=== PATIENT | male | born 1995 | race African-American/Black ===

== ENCOUNTER 2016-08-24 14:16 | Emergency (ER) | payer OTHER, MEDICAID ==
[~2016-08-24] VITALS: Ht 175.3 cm; Wt 86.0 kg
[2016-08-24 14:29] VITALS: BP 122/69; PULSE 66; RESP 16; RESP 18; TEMP 98; O2SAT 99
[2016-08-24] MEDS ORDERED: ACETAMINOPHEN/HYDROcodone 325 MG/5 MG TAB PO ONE (15:30)
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
[2016-08-24] MEDS ORDERED: DICL75TA PO (16:57)
[2016-08-24] MEDS ORDERED: ROBA750T PO (16:57)
== END 2016-08-24 18:03 | disposition home or self-care (01) ==
LOC: NEDAMB 14:16
DX: S13.4XXA Sprain of ligaments of cervical spine, initial encounter (principal); T14.8 Other injury of unspecified body region; V43.52XA Car driver injured in collision with other type car in traffic accident, initial encounter; Y93.9 Activity, unspecified; Y92.9 Unspecified place or not applicable; Y99.9 Unspecified external cause status
CPT/HCPCS: 70450; 72125; 73030; 73552; 73564

== ENCOUNTER 2016-08-26 14:09 | Emergency (ER) | payer OTHER ==
[~2016-08-26] VITALS: Ht 175.3 cm; Wt 90.0 kg
[~2016-08-26 14:09] MED LIST: DICL75TA PO; ROBA750T PO
[2016-08-26 14:11] VITALS: BP 147/87; PULSE 62; RESP 16; TEMP 97.8; O2SAT 100
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
[2016-08-26] MEDS ORDERED: ORPHENADRINE INJ 60 MG/2 ML AMP IM ONE (15:30)
== END 2016-08-26 16:24 | disposition home or self-care (01) ==
LOC: NEPB 14:09
DX: S13.4XXD Sprain of ligaments of cervical spine, subsequent encounter (principal); V89.2XXD Person injured in unspecified motor-vehicle accident, traffic, subsequent encounter
CPT/HCPCS: 96372; 99283; J2360

== ENCOUNTER 2016-09-14 17:01 | Emergency (ER) | payer MEDICAID, OTHER ==
[~2016-09-14] VITALS: Ht 175.3 cm; Wt 86.0 kg
[2016-09-14 17:05] VITALS: BP 125/88; PULSE 77; RESP 16; TEMP 98.3; O2SAT 100
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
[2016-09-14] MEDS ORDERED: IBUP800T23 PO (17:39)
[2016-09-14] MEDS ORDERED: CEPH-459 PO (17:39)
[2016-09-14] MEDS ORDERED: BACT800T5 PO (17:39)
[2016-09-14] MEDS ORDERED: LIDOCAINE 1%/EPINEPHrine 1:100,000 SOLN 20 ML VIAL INFIL ONE (17:45)
== END 2016-09-14 18:05 | disposition home or self-care (01) ==
LOC: PHEFT 17:01
DX: L02.411 Cutaneous abscess of right axilla (principal); B96.4 Proteus (mirabilis) (morganii) as the cause of diseases classified elsewhere; Z87.09 Personal history of other diseases of the respiratory system
CPT/HCPCS: 10061; 87070; 87077; 87186; 87205

== ENCOUNTER 2016-09-16 15:00 | Emergency (ER) | payer MEDICAID ==
[~2016-09-16] VITALS: Ht 175.3 cm; Wt 87.4 kg
[~2016-09-16 15:00] MED LIST changes: +BACT800T5 PO; +CEPH-459 PO; -DICL75TA PO; +IBUP800T23 PO; -ROBA750T PO
[2016-09-16 15:04] VITALS: BP 118/68; PULSE 82; RESP 16; TEMP 98.9; O2SAT 98
--- NOTE | 2016-09-16 15:15 | PD ---
HPI . f/u abscess Chief Complaint: Wound/Suture/Staple Re-Check Time Seen by Provider: 15:15 Travel History International Travel<30 days: No Contact w/Intl Traveler<30days: No Traveled to known affect area: No History of Present Illness HPI 21-year-old male who was seen on September 14 with a right axillary abscess here for wound recheck. There was packing placed and he is here to have it reassessed. Patient still complaining of pain in the right axilla. He is taking medications as prescribed. There is very minimal drainage from this. There is no erythema and the swelling seems to have diminished. He denies any fever or chills. He is concerned about returning to work. PFSH Past Medical History Medical History: Denies Significant Hx Diminished Hearing: No Respiratory: Yes (Asthma) Immunizations Current: Yes Tetanus Vaccination: < 5 Years Influenza Vaccination: No Past Surgical History Surgical History: No Previous Surgery Social History Alcohol Use: Yes (Occ.) Tobacco Use: No Substance Use: No Allergies-Medications (Allergen,Severity, Reaction): Coded Allergies: No Known Allergies (Unverified , 09/16/16) Reported Meds & Prescriptions Reported Meds & Active Scripts Active Ibuprofen 800 Mg Tab 800 Mg PO Q8H PRN Keflex (Cephalexin) 250 Mg Cap 250 Mg PO Q6H 10 Days Bactrim DS (Sulfamethoxazole-Trimethoprim) 800-160 Mg Tab 1 Tab PO BID Review of Systems General / Constitutional: No: Fever Eyes: No: Visual changes HENT: No: Headaches Cardiovascular: No: Chest Pain or Discomfort Respiratory: No: Shortness of Breath Gastrointestinal: No: Abdominal Pain Genitourinary: No: Dysuria Musculoskeletal: Positive: Pain (right axilla ) Skin: No Rash Neurologic: No: Weakness Psychiatric: No: Depression Endocrine: No: Polydipsia Hematologic/Lymphatic: No: Easy Bruising Physical Exam Narrative GENERAL: AAO x 3, no acute distress, Well-nourished, well-developed patient. SKIN: Warm and dry. No visible rashes or bruising. Right axilla with abscess with packing present. Very minimal drainage. Packing removed and there is hardly any purulent matter.Clean blood present. There is already healing from within. No further packing required. HEAD: Normocephalic and atraumatic. EYES: No scleral icterus. No injection or drainage. ENT: No nasal drainage noted. Mucous membranes pink. Airway patent. NECK: Supple, trachea midline. No JVD. CARDIOVASCULAR: Regular rate and rhythm RESPIRATORY: Breath sounds equal bilaterally. GASTROINTESTINAL: Abdomen soft, non-tender, nondistended. EXTREMITIES: No cyanosis or edema. BACK: Nontender without obvious deformity. No CVA tenderness. PSYCH: AAO x 3, normal affect. Data Data Last Documented VS Vital Signs Date Time Temp Pulse Resp B/P Pulse Ox O2 Delivery O2 Flow Rate FiO2 09/16/16 15:04 98.9 82 16 118/68 98 MDM Medical Decision Making Medical Screen Exam Complete: Yes Emergency Medical Condition: Yes Medical Record Reviewed: Yes Differential Diagnosis Right axilla abscess, cellulitis, less likely folliculitis Narrative Course 21-year-old male who was seen on September 14 with a right axillary abscess here for wound recheck. There was packing placed and he is here to have it reassessed. Patient still complaining of pain in the right axilla. He is taking medications as prescribed. There is very minimal drainage from this. There is no erythema and the swelling seems to have diminished. He denies any fever or chills. He is concerned about returning to work. Patient seen and examined. Packing was removed from the right axilla abscess. There was very minimal purulent drainage and some bright red blood. Area was flushed and cleaned to allow appropriate visualization. There already seems to be some healing from within. No need for additional packing. Advised to continue with antibiotics and follow-up with primary care provider. Discussed with patient that these things tend to come back and he may need to have a surgical consult for definitive removal, if there is not total resolution after treatment. Advised patient to perform dressing changes at least twice daily. Patient verbalized understanding of instructions, questions were answered, and thanked me for their care. I advised them if their condition worsens, please return to the nearest emergency room for further care. Diagnosis Primary Impression: Abscess of right axilla Patient Instructions: Acute Wound Care (ED), General Instructions Additional Instructions: Please return to emergency department if your symptoms return or worsen. Follow up with your primary care provider. Take medications as prescribed. As we discussed, continue antibiotics until complete. If this area worsens, return to the emergency department immediately. If you develop spiking fevers or chills, return to the emergency department. As we discussed, you will need to follow-up with your primary care provider Dr. Vela. You may benefit from a referral to a leather etcher or general surgeon, to have this area assessed. Sometimes, the abscess can return and require surgical intervention. Although surgery is not indicated at this moment, a consultation with not hurt. As we discussed, please keep the dressing clean and dry. You would benefit from changing this dressing twice a day. General wound care supplies can be purchased from any local pharmacy. Med/Other Pt SpecificInfo: No Change to Meds Disposition: 01 DISCHARGE HOME Condition: Stable Kary Nassar Sep 16, 2016 15:15
== END 2016-09-16 15:45 | disposition home or self-care (01) ==
LOC: PHEFT 15:00
DX: L02.411 Cutaneous abscess of right axilla (principal); Z48.01 Encounter for change or removal of surgical wound dressing
CPT/HCPCS: 99281